=== PATIENT | female | born 1980 | race Caucasian/White ===

== ENCOUNTER 2019-01-01 09:27 | Emergency (ER) | payer MEDICAID ==
[~2019-01-01] VITALS: Ht 157.5 cm; Wt 101.7 kg
[2019-01-01 09:51] VITALS: BP 172/139
--- NOTE | 2019-01-01 10:11 | NUR ---
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
--- NOTE | 2019-01-01 10:16 | NUR ---
PT HAS CO OF LOWER BACK PAIN. 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 STATES THERE IS A PULLING SENSATION IN LEFT LEG/HIP. PT IS TEARFUL.
[2019-01-01] MEDS ORDERED: ATEN25TA PO (10:17)
[2019-01-01] MEDS ORDERED: ONDANSETRON ODT 4 MG PO ONE (10:30)
[2019-01-01] MEDS ORDERED: CYCLOBENZAPRINE 10 MG TABLET PO ONE (10:30)
[2019-01-01] MEDS ORDERED: KETOROLAC 30 MG/1 ML IM ONE (10:30)
[2019-01-01] MEDS ORDERED: OXYcodone/APAP 5/325MG TABLET PO ONE (10:30)
[2019-01-01] MEDS ORDERED: ONDANSETRON ODT 4 MG ONE (10:41)
[2019-01-01] MEDS ORDERED: KETOROLAC 30 MG/1 ML ONE (10:41)
[2019-01-01] MEDS ORDERED: CYCLOBENZAPRINE 10 MG TABLET ONE (10:41)
[2019-01-01] MEDS ORDERED: OXYcodone/APAP 5/325MG TABLET ONE (10:42)
--- NOTE | 2019-01-01 10:59 | NUR ---
PT IN XR
--- NOTE | 2019-01-01 11:35 | NUR ---
Patient/Caregiver given discharge instructions and they have confirmed that they understand the instructions. Patient ambulatory with steady gait.
== END 2019-01-01 11:37 | disposition home or self-care (01) ==
LOC: ED 11:35
DX: S39.012A Strain of muscle, fascia and tendon of lower back, initial encounter (principal); M54.41 Lumbago with sciatica, right side; G89.29 Other chronic pain; I10 Essential (primary) hypertension; Z88.0 Allergy status to penicillin; X58.XXXA Exposure to other specified factors, initial encounter; Y93.89 Activity, other specified; Y92.89 Other specified places as the place of occurrence of the external cause; Y99.8 Other external cause status
CPT/HCPCS: 72110; 96372; 99284; J1885; Q0162